=== PATIENT | male | born 1965 | race Caucasian/White ===

== ENCOUNTER 2021-04-19 10:13 | Emergency (ER) | payer MEDICAID, OTHER ==
[~2021-04-19] VITALS: Ht 182.9 cm; Wt 81.0 kg
[~2021-04-19 10:13] MED LIST: HYDR-3708 PO; PENICILLIN
[2021-04-19 10:42] VITALS: BP 131/62
[2021-04-19 12:16] LABS: COVID AG,FIA SOURCE NASOPHARYNGEAL
== END 2021-04-19 13:05 | disposition left against medical advice (07) ==
LOC: EMS 10:16
DX: U07.1 COVID-19 (principal); I25.10 Atherosclerotic heart disease of native coronary artery without angina pectoris; I10 Essential (primary) hypertension; F17.210 Nicotine dependence, cigarettes, uncomplicated; F15.90 Other stimulant use, unspecified, uncomplicated; Z79.899 Other long term (current) drug therapy
CPT/HCPCS: 71045; 99284